=== PATIENT | female | born 1985 | race Caucasian/White ===

== ENCOUNTER 2016-12-11 15:25 | Observation (INO) | payer BC ==
[~2016-12-11] VITALS: Ht 165.1 cm; Wt 61.2 kg
[2016-12-11 15:33] VITALS: PULSE 73; RESP 20; TEMP 98.9; O2SAT 98
[2016-12-11] MEDS ORDERED: PROM25TA5 PO (15:45)
[2016-12-11] MEDS ORDERED: ZOFR4TAB PO (15:45)
[2016-12-11] MEDS ORDERED: SODIUM CHLORIDE 0.9% FLUSH 10 ML FLUSH IV FLUSH PRN ×2 (16:00→23:30)
[2016-12-11] MEDS ORDERED: SODIUM CHLOR 0.9% 1000 ML INJ 1,000 ML IV ONE (16:00)
[2016-12-11] MEDS ORDERED: ONDANSETRON HCL 4 MG/2 ML VIAL IV PUSH ONE (16:00)
[2016-12-11 16:11] VITALS: BP 97/69; PULSE 74; RESP 16; TEMP 97.9; O2SAT 98
[2016-12-11] MEDS ORDERED: DIATRIZOATE MEGLUM/DIATRIZOATE SOD 9 ML CUP ONE (16:18)
[2016-12-11 16:23] LABS: AUTOMATED NEUTROPHIL # 4.7 TH/MM3 (1.8-7.7); BASOPHIL # 0.1 TH/MM3 (0-0.2); EOSINOPHIL # 0.2 TH/MM3 (0-0.4); EOSINOPHIL % 2.4 % (0.0-4.0); HEMATOCRIT 41.6 % (35.0-46.0); HEMO FLAGS DIFF FINAL; LYMPH % 30.3 % (9.0-44.0); LYMPHOCYTE # 2.3 TH/MM3 (1.0-4.8); MEAN CELL VOLUME 84.9 FL (80.0-100.0); MEAN CORPUSCULAR HEMOGLOBIN 30.1 PG (27.0-34.0); MEAN CORPUSCULAR HGB CONC 35.4 % (32.0-36.0); MONO % 5.3 % (0.0-8.0); PLATELET COUNT 286 TH/MM3 (150-450); RED CELL DISTRIBUTION WIDTH 13.1 % (11.6-17.2); WHITE BLOOD COUNT 7.7 TH/MM3 (4.0-11.0)
[2016-12-11 16:27] LABS: BLOOD, URINE MOD (NEG); COMMENT (UR) CULT NOT INDICATED; CULTURE IF INDICATED CULT NOT INDICATED; GLUCOSE,URINE NEG (NEG); KETONE, URINE NEG (NEG); MUCUS URINE FEW /lpf (OCC); NITRITE,URINE NEG (NEG); PH, URINE 5.5 (5.0-8.5); SQUAMOUS EPITHELIAL CELL URINE <1 /hpf (0-5); URINE COLOR YELLOW (YELLW/STRAW)
--- NOTE | 2016-12-11 16:33 | PD ---
HPI Chief Complaint: Abdominal Pain Time Seen by Provider: 15:32 Travel History International Travel<30 days: No Contact w/Intl Traveler<30days: No Traveled to known affect area: No History of Present Illness HPI This is a 31-year-old female who presents with complaints of lower abdominal pain with associated nausea. The patient has had pain for 4 days. She was seen and evaluated in the emergency department in [place] and told that it could be an early appendicitis however they did not see one at the time. Her white blood cell count was reportedly normal at that time. The patient was then reevaluated 2 days ago because the pain continued. She had a ultrasound of her pelvis that showed no obvious findings however they had difficulty evaluating her right ovary. She denies any fevers, chills. She did state that she had loose stools 2 episodes. There are no urinary symptoms. The patient did have spotting that has resolved. PFSH Past Medical History Medical History: Denies Significant Hx Genitourinary: Yes (cyst) Tetanus Vaccination: < 5 Years ?: Not Past Surgical History Surgical History: No Previous Surgery Social History Alcohol Use: No Tobacco Use: No Substance Use: No Allergies-Medications (Allergen,Severity, Reaction): Coded Allergies: No Known Allergies (Unverified , 12/11/16) Reported Meds & Prescriptions Reported Meds & Active Scripts Active Reported Phenergan (Promethazine HCl) 25 Mg Tab 25 Mg PO Q6H PRN Zofran (Ondansetron HCl) 4 Mg Tab 4 Mg PO Q6HR PRN Review of Systems Except as stated in HPI: all other systems reviewed are Neg General / Constitutional: No: Fever, Chills Cardiovascular: No: Chest Pain or Discomfort, Palpitations Respiratory: No: Cough, Shortness of Breath Gastrointestinal: Positive: Nausea, Diarrhea, Abdominal Pain (loose stools 2 lower abdominal pain, worse on right.), No: Vomiting, Loss of Appetite Genitourinary: Positive: Vaginal Bleeding (spotting 3 days ago and none today) , No: Frequency, Dysuria, Discharge Musculoskeletal: No: Pain (no flank pain) Physical Exam Narrative GENERAL: Well-nourished, well-developed patient. SKIN: Focused skin assessment warm/dry. HEAD: Normocephalic/atraumatic. EYES: No scleral icterus. No injection or drainage. NECK: Supple, trachea midline. CARDIOVASCULAR: Regular rate and rhythm without murmurs, gallops, or rubs. RESPIRATORY: Breath sounds equal bilaterally. No accessory muscle use. GASTROINTESTINAL: Abdomen soft, nondistended. She did have tenderness to palpation in her lower abdominal region, worse on the right than on the left. Her was no guarding or rebound. The patient did experience significant nausea with palpation of her abdomen. GENITOURINARY: In the presence of the nurse. Normal external genitalia without lesions or erythema. Vaginal vault dark blood in the vaginal vault. Cervical os was closed without drainage. No cervical motion tenderness. Uterus nontender and nonenlarged. Right adnexa tender to palpation. No obvious large masses. Left adnexa without discomfort NEUROLOGICAL: Awake and alert. Cranial nerves II through XII intact. Motor grossly within normal limits. Five out of 5 muscle strength in all muscle groups. Normal speech. Data Data Last Documented VS Vital Signs Date Time Temp Pulse Resp B/P Pulse Ox O2 Delivery O2 Flow Rate FiO2 12/11/16 21:14 63 18 95/54 96 Room Air 12/11/16 16:11 97.9 Orders Complete Blood Count With Diff (12/11/16 15:50) Comprehensive Metabolic Panel (12/11/16 15:50) Lipase (12/11/16 15:50) Urinalysis - C+S If Indicated (12/11/16 15:50) Ct Abd/Pel W Iv Contrast(Rout) (12/11/16 15:50) Iv Access Insert/Monitor (12/11/16 15:50) Ecg Monitoring (12/11/16 15:50) Oximetry (12/11/16 15:50) Sodium Chloride 0.9% Flush (Ns Flush) (12/11/16 16:00) Ed Urine Pregnancytest Poc (12/11/16 15:50) Oral Contrast - Adult (12/11/16 15:55) Ondansetron Inj (Zofran Inj) (12/11/16 16:00) Sodium Chlor 0.9% 1000 Ml Inj (Ns 1000 M (12/11/16 16:00) Diatrizoate Liq ( Gastroview Liq) (12/11/16 16:18) Iohexol 350 Inj (Omnipaque 350 Inj) (12/11/16 17:47) Prochlorperazine Inj (Compazine Inj) (12/11/16 18:15) Wet Prep Profile (12/11/16 18:10) Gc And Chlamydia Pcr (12/11/16 18:10) Hydromorphone Pf Inj (Dilaudid Pf Inj) (12/11/16 19:15) Us Pelvis Comp W Dop Transvag (12/11/16 20:34) Consult Gynecology (12/11/16 ) Admit Order (Ed Use Only) (12/11/16 22:30) Admit Order (Ed Use Only) (12/11/16 22:32) Labs Laboratory Tests Test 12/11/16 12/11/16 16:00 18:35 White Blood Count 7.7 TH/MM3 Red Blood Count 4.90 MIL/MM3 Hemoglobin 14.7 GM/DL Hematocrit 41.6 % Mean Corpuscular Volume 84.9 FL Mean Corpuscular Hemoglobin 30.1 PG Mean Corpuscular Hemoglobin 35.4 % Concent Red Cell Distribution Width 13.1 % Platelet Count 286 TH/MM3 Mean Platelet Volume 7.9 FL Neutrophils (%) (Auto) 61.0 % Lymphocytes (%) (Auto) 30.3 % Monocytes (%) (Auto) 5.3 % Eosinophils (%) (Auto) 2.4 % Basophils (%) (Auto) 1.0 % Neutrophils # (Auto) 4.7 TH/MM3 Lymphocytes # (Auto) 2.3 TH/MM3 Monocytes # (Auto) 0.4 TH/MM3 Eosinophils # (Auto) 0.2 TH/MM3 Basophils # (Auto) 0.1 TH/MM3 CBC Comment DIFF FINAL Differential Comment Urine Color YELLOW Urine Turbidity CLEAR Urine pH 5.5 Urine Specific [place] 1.014 Urine Protein NEG mg/dL Urine Glucose (UA) NEG mg/dL Urine Ketones NEG mg/dL Urine Occult Blood MOD Urine Nitrite NEG Urine Bilirubin NEG Urine Urobilinogen LESS THAN 2.0 MG/DL Urine Leukocyte Esterase TRACE Urine RBC 1 /hpf Urine WBC 5 /hpf Urine Squamous Epithelial <1 /hpf Cells Urine Mucus FEW /lpf Microscopic Urinalysis Comment CULT NOT INDICATED Sodium Level 141 MEQ/L Potassium Level 3.8 MEQ/L Chloride Level 105 MEQ/L Carbon Dioxide Level 26.4 MEQ/L Anion Gap 10 MEQ/L Blood Urea Nitrogen 12 MG/DL Creatinine 0.88 MG/DL Estimat Glomerular Filtration 75 ML/MIN Rate Random Glucose 77 MG/DL Calcium Level 8.9 MG/DL Total Bilirubin 0.6 MG/DL Aspartate Amino Transf 10 U/L (AST/SGOT) Alanine Aminotransferase 14 U/L (ALT/SGPT) Alkaline Phosphatase 85 U/L Total Protein 7.5 GM/DL Albumin 4.1 GM/DL Lipase 130 U/L Human Chorionic Gonadotropin, LESS THAN 1 Quant MIU/ML Clue Cells (Wet Prep) NONE SEEN Vaginal Trichomonas (Wet Prep) NONE SEEN Vaginal Yeast (Wet Prep) NONE SEEN Chlamydia trachomatis DNA NOT DETECTED (PCR) Neisseria gonorrhoeae DNA NOT DETECTED (PCR) MDM Medical Decision Making Medical Screen Exam Complete: Yes Emergency Medical Condition: Yes Differential Diagnosis Appendicitis versus ruptured ovarian cyst versus gastroenteritis versus diverticulitis Narrative Course This is a 31-year-old female who is had several day history of right lower quadrant pain and nausea. The patient has been seen and evaluated twice at [facility]. The patient had a CT scan that was not showing an obvious appendicitis. She also had an ultrasound however they were not able to visualize her right ovary. She has tenderness in her right quadrant. CT scan performed here shows what appears to be hydrosalpinx of the right fallopian tube. The patient has no evidence of pelvic infection on exam. She is tender in the right adnexa near her ovary. Pelvic ultrasound is ordered. The patient was transferred to Dr. Rodriguez and Pardeep Lr PA-C. Pending ultrasound results, disposition will be made. I anticipate she may need admission versus observation with a HAIR SALON MANAGER consult. Diagnosis Primary Impression: Right lower quadrant abdominal tenderness with rebound tenderness Additional Impressions: Hydrosalpinx intractable nausea Scripts Pantoprazole 40 Mg Tab40 Mg PO DAILY #30 TAB Ref 0 Prov:Kendall Menon DO 12/13/16 Ondansetron (Zofran)4 Mg Tab4 Mg PO Q8HR PRN (NAUSEA OR VOMITING) #20 TAB Ref 2 Prov:Rosa Mejias 12/13/16 Mark Mcgee MD Dec 11, 2016 16:33
[2016-12-11 16:47] LABS: ANION GAP 10 MEQ/L (5-15); AST (GOT) 10 U/L (15-37); BICARBONATE 26.4 MEQ/L (21.0-32.0); BLOOD UREA NITROGEN 12 MG/DL (7-18); CHLORIDE 105 MEQ/L (98-107); GLOMERULAR FILTRATION RATE 75 ML/MIN (>89); POTASSIUM 3.8 MEQ/L (3.5-5.1); SODIUM (NA) 141 MEQ/L (136-145)
[2016-12-11 16:50] LABS: ALKALINE PHOSPHATASE 85 U/L (45-117); ALT (GPT) 14 U/L (10-53); TOTAL BILIRUBIN ADULT 0.6 MG/DL (0.2-1.0)
[2016-12-11] MEDS ORDERED: IOHEXOL 350 MG/ML 10 ML VIAL (for RAD DIAG) IV ONE (17:47)
[2016-12-11 18:00] VITALS: BP 102/65; PULSE 82; RESP 16; O2SAT 99
--- NOTE | 2016-12-11 18:01 | RADRPT ---
EXAM DATE/TIME: 12/11/2016 17:31 [facility] COMPARISON: No previous studies available for comparison. INDICATIONS : Right lower quadrant pain, nausea and vomiting. IV CONTRAST: 90 cc Omnipaque 350 (iohexol) IV ORAL CONTRAST: No oral contrast ingested. RADIATION DOSE: 5.31 CTDIvol (mGy) MEDICAL HISTORY : None SURGICAL HISTORY : None. ENCOUNTER: Initial ACUITY: 3 days PAIN SCALE: 6/10 LOCATION: Right lower quadrant TECHNIQUE: Volumetric scanning of the abdomen and pelvis was performed. Using automated exposure control and ad justment of the mA and/or kV according to patient size, radiation dose was kept as low as reasonably achievable to obtain optimal diagnostic quality images. FINDINGS: The appendix appears normal without inflammatory change. There is a questionable tubular structure ex tending off the right side of the uterus that could represent a hydrosalpinx. Intrauterine device is present. No left-sided adnexal mass except for probable small follicular cyst. Lung bases are clear. Mild fatty. Spleen, adrenals, kidneys are and pancreas unremarkable. No bowel o bstruction. CONCLUSION: 1. Possible right-sided hydrosalpinx. Recommend correlation with pelvic ultrasound. Appendix unremark able. Intrauterine device present. Lei Morales MD on December 11, 2016 at 17:54 Board Certified Radiologist. This report was verified electronically.
[2016-12-11] MEDS ORDERED: PROCHLORPERAZINE INJ 10 MG/2 ML VIAL IV PUSH ONE (18:15)
[2016-12-11] MEDS ORDERED: HYDROmorphone HCL PF 1 MG/ML VIAL IV PUSH ONE (19:15)
[2016-12-11 21:14] VITALS: BP 95/54; PULSE 63; RESP 18; O2SAT 96
--- NOTE | 2016-12-11 22:15 | PD ---
Physical Exam Date Seen by Provider: Dec 11, 2016 Time Seen by Provider: 21:00 Narrative 31-year-old female with 4 day history of right lower quadrant pain seen by Dr. Mcgee and felt a pop and then transferred to echo pod for CT scan and ultrasound. Please see his note for past medical history. Data Data Last Documented VS Vital Signs Date Time Temp Pulse Resp B/P Pulse Ox O2 Delivery O2 Flow Rate FiO2 12/11/16 21:14 63 18 95/54 96 Room Air 12/11/16 16:11 97.9 Orders Complete Blood Count With Diff (12/11/16 15:50) Comprehensive Metabolic Panel (12/11/16 15:50) Lipase (12/11/16 15:50) Urinalysis - C+S If Indicated (12/11/16 15:50) Ct Abd/Pel W Iv Contrast(Rout) (12/11/16 15:50) Iv Access Insert/Monitor (12/11/16 15:50) Ecg Monitoring (12/11/16 15:50) Oximetry (12/11/16 15:50) Sodium Chloride 0.9% Flush (Ns Flush) (12/11/16 16:00) Ed Urine Pregnancytest Poc (12/11/16 15:50) Oral Contrast - Adult (12/11/16 15:55) Ondansetron Inj (Zofran Inj) (12/11/16 16:00) Sodium Chlor 0.9% 1000 Ml Inj (Ns 1000 M (12/11/16 16:00) Diatrizoate Liq ( Gastroview Liq) (12/11/16 16:18) Iohexol 350 Inj (Omnipaque 350 Inj) (12/11/16 17:47) Prochlorperazine Inj (Compazine Inj) (12/11/16 18:15) Wet Prep Profile (12/11/16 18:10) Gc And Chlamydia Pcr (12/11/16 18:10) Hydromorphone Pf Inj (Dilaudid Pf Inj) (12/11/16 19:15) Us Pelvis Comp W Dop Transvag (12/11/16 20:34) Consult Gynecology (12/11/16 ) Labs Laboratory Tests Test 12/11/16 12/11/16 16:00 18:35 White Blood Count 7.7 TH/MM3 Red Blood Count 4.90 MIL/MM3 Hemoglobin 14.7 GM/DL Hematocrit 41.6 % Mean Corpuscular Volume 84.9 FL Mean Corpuscular Hemoglobin 30.1 PG Mean Corpuscular Hemoglobin 35.4 % Concent Red Cell Distribution Width 13.1 % Platelet Count 286 TH/MM3 Mean Platelet Volume 7.9 FL Neutrophils (%) (Auto) 61.0 % Lymphocytes (%) (Auto) 30.3 % Monocytes (%) (Auto) 5.3 % Eosinophils (%) (Auto) 2.4 % Basophils (%) (Auto) 1.0 % Neutrophils # (Auto) 4.7 TH/MM3 Lymphocytes # (Auto) 2.3 TH/MM3 Monocytes # (Auto) 0.4 TH/MM3 Eosinophils # (Auto) 0.2 TH/MM3 Basophils # (Auto) 0.1 TH/MM3 CBC Comment DIFF FINAL Differential Comment Urine Color YELLOW Urine Turbidity CLEAR Urine pH 5.5 Urine Specific [place] 1.014 Urine Protein NEG mg/dL Urine Glucose (UA) NEG mg/dL Urine Ketones NEG mg/dL Urine Occult Blood MOD Urine Nitrite NEG Urine Bilirubin NEG Urine Urobilinogen LESS THAN 2.0 MG/DL Urine Leukocyte Esterase TRACE Urine RBC 1 /hpf Urine WBC 5 /hpf Urine Squamous Epithelial <1 /hpf Cells Urine Mucus FEW /lpf Microscopic Urinalysis Comment CULT NOT INDICATED Sodium Level 141 MEQ/L Potassium Level 3.8 MEQ/L Chloride Level 105 MEQ/L Carbon Dioxide Level 26.4 MEQ/L Anion Gap 10 MEQ/L Blood Urea Nitrogen 12 MG/DL Creatinine 0.88 MG/DL Estimat Glomerular Filtration 75 ML/MIN Rate Random Glucose 77 MG/DL Calcium Level 8.9 MG/DL Total Bilirubin 0.6 MG/DL Aspartate Amino Transf 10 U/L (AST/SGOT) Alanine Aminotransferase 14 U/L (ALT/SGPT) Alkaline Phosphatase 85 U/L Total Protein 7.5 GM/DL Albumin 4.1 GM/DL Lipase 130 U/L Clue Cells (Wet Prep) NONE SEEN Vaginal Trichomonas (Wet Prep) NONE SEEN Vaginal Yeast (Wet Prep) NONE SEEN MDM Medical Record Reviewed: Yes Supervised Visit with JAZMIN: Yes Differential Diagnosis Appendicitis. Hydrosalpinx. Ovarian torsion. Narrative Course CT scan showed possible hydrosalpinx on the right. Ultrasound was then ordered and performed with Doppler. Ultrasound showed that there was blood flow in the right ovary, but there was inflammation. Patient is felt to need admission for pain control and gynecological consult. 2200 hrs. call was placed to the hospitalist for admission. Patient is discussed with Dr. Daugherty by Dr. Rodriguez, as well as with Dr. Robison , who agreed to admit the patient for observation. Gynecological consult was placed to Dr. Daugherty. Diagnosis Primary Impression: Hydrosalpinx Additional Impression: Right lower quadrant abdominal tenderness with rebound tenderness Admitting Information Admitting Physician Requests: Admit Condition: Stable Pardeep Lr Dec 11, 2016 22:15
--- NOTE | 2016-12-11 22:29 | RADRPT ---
EXAM DATE/TIME: 12/11/2016 21:19 [facility] COMPARISON: No previous studies available for comparison. INDICATIONS : Pelvic pain. MEDICAL HISTORY : . Ovarian cyst. Nausea. Right lower quadrant pain. SURGICAL HISTORY : None. ENCOUNTER: Initial ACUITY: 4-6 days PAIN SCORE: 7/10 LOCATION: Bilateral pelvis MEASUREMENTS: UTERUS: 5.9 x 4.4 x 3.5 cm ENDOMETRIAL STRIPE: 5 mm RIGHT OVARY: 2.9 x 1.8 x 1.7 cm LEFT OVARY: 3.3 x 2.1 x 2.2 cm FINDINGS: Intrauterine device present within the uterus. Right ovary unremarkable. Small cyst left ovary. No fr ee fluid. There is some enlargement of what appears to be the right fallopian tube with edematous dylan nge no hydrosalpinx is noted. CONCLUSION: 1. Abnormality in the right adnexal region, probably an enlarged and edematous fallopian tube. Intrau terine device present. Positive ovarian blood flow noted bilaterally with small left sided ovarian fo llicular cysts. Lei Morales MD on December 11, 2016 at 22:25 Board Certified Radiologist. This report was verified electronically.
--- NOTE | 2016-12-11 23:16 | HHI.HP ---
[facility] Unknown Admission Diagnosis Right hydrosalpinx Diagnoses: Chief Complaint: RLQ abd pain assoicated with dry heaves Travel History International Travel<30 Days: No Contact w/Intl Traveler <30 Da: No Traveled to Known Affected Are: No History of Present Illness This is a 31-year-old female who denies prior medical history who presents with complaints of lower abdominal pain with associated nausea. The patient has had pain for 4 days. Patient reports her symptoms initially began 4 days ago she had right lower quadrant pain with associated nausea and dry heaving. The nausea and dry heaves were exacerbated by trying to ambulate. Patient also reports she had vaginal discharge with light bleeding approximately 1 tampon for 12 hours. The light bleeding/spotting resolved after 2 days. She was seen and evaluated in the emergency department in [place] and told that it could be an early appendicitis however they did not see one at the time. Her white blood cell count was reportedly normal at that time. The patient was then reevaluated 2 days ago because the pain continued. She had a ultrasound of her pelvis that showed no obvious findings however they had difficulty evaluating her right ovary. Patient reports that over Monday night into Monday morning the nausea and right lower quadrant pain became more severe. Therefore patient presented to the emergency department today for further evaluation. At this time patient reports she is comfortable after IV Dilaudid and IV Compazine Patient reports her last menstrual period was November 15, 2016 which lasted for 7 days. Patient 2 para 2, currently has IUD device in place. Review of Systems Except as stated in HPI: all other systems reviewed are Neg Past Family Social History Past Medical History 3 para 2 Denies other medical history Past Surgical History Denies prior surgical history Reported Medications Phenergan (Promethazine HCl) 25 Mg Tab 25 Mg PO Q6H PRN Zofran (Ondansetron HCl) 4 Mg Tab 4 Mg PO Q6HR PRN Allergies: Coded Allergies: No Known Allergies (Unverified , 12/11/16) Active Ordered Medications Current Medications Medications (Trade) Dose Ordered Sig/Ave Route Start Time Stop Time Status Last Admin (NS 1000 ml Inj) 1,000 ml @ 75 mls/hr [id number] IV 12/11/16 23:22 (NS Flush) 2 ml UNSCH PRN IV FLUSH 12/11/16 23:30 (NS Flush) 2 ml BID IV FLUSH 12/12/16 09:00 (Tylenol) 650 mg Q4H PRN PO 12/11/16 23:30 (Narcan Inj) 0.4 mg UNSCH PRN IV 12/11/16 23:30 (Dilaudid Pf Inj) 0.5 mg Q4H PRN IV PUSH 12/11/16 23:30 (Compazine Inj) 5 mg Q6H PRN IM 12/11/16 23:30 Family History father HTN Mother RA, hypothyroid remote history of ovarian cancer- aunt Social History ETOH socially denies tobacco use or illicit drug use Physical Exam Vital Signs Vital Signs Date Time Temp Pulse Resp B/P Pulse Ox O2 Delivery O2 Flow Rate FiO2 12/11/16 21:14 63 18 95/54 96 Room Air 12/11/16 19:27 16 12/11/16 18:00 82 16 102/65 99 Room Air 12/11/16 16:11 97.9 74 16 97/69 98 Room Air 12/11/16 15:33 98.9 73 20 98 Physical Exam GENERAL: This is a well-nourished, well-developed patient, in no apparent distress. SKIN: No rashes, ecchymoses or lesions. Cool and dry. HEAD: Atraumatic. Normocephalic. No temporal or scalp tenderness. EYES: Extraocular motions intact. No scleral icterus. No injection or drainage. CARDIOVASCULAR: Regular rate and rhythm without murmurs, gallops, or rubs. RESPIRATORY: Clear to auscultation. Breath sounds equal bilaterally. No wheezes , rales, or rhonchi. GASTROINTESTINAL: Abdomen soft, tender RLQ- worse with pressure no rebound tenderness elicited, nondistended. MUSCULOSKELETAL: Extremities without clubbing, cyanosis, or edema. No joint tenderness, effusion, or edema noted. No calf tenderness. Negative Homans sign bilaterally. NEUROLOGICAL: Awake and alert. Cranial nerves II through XII intact. Motor and sensory grossly within normal limits. Five out of 5 muscle strength in all muscle groups. Normal speech. Laboratory Laboratory Tests Test 12/11/16 12/11/16 16:00 18:35 White Blood Count 7.7 Red Blood Count 4.90 Hemoglobin 14.7 Hematocrit 41.6 Mean Corpuscular Volume 84.9 Mean Corpuscular Hemoglobin 30.1 Mean Corpuscular Hemoglobin 35.4 Concent Red Cell Distribution Width 13.1 Platelet Count 286 Mean Platelet Volume 7.9 Neutrophils (%) (Auto) 61.0 Lymphocytes (%) (Auto) 30.3 Monocytes (%) (Auto) 5.3 Eosinophils (%) (Auto) 2.4 Basophils (%) (Auto) 1.0 Neutrophils # (Auto) 4.7 Lymphocytes # (Auto) 2.3 Monocytes # (Auto) 0.4 Eosinophils # (Auto) 0.2 Basophils # (Auto) 0.1 CBC Comment DIFF FINAL Differential Comment Urine Color YELLOW Urine Turbidity CLEAR Urine pH 5.5 Urine Specific [place] 1.014 Urine Protein NEG Urine Glucose (UA) NEG Urine Ketones NEG Urine Occult Blood MOD Urine Nitrite NEG Urine Bilirubin NEG Urine Urobilinogen LESS THAN 2.0 Urine Leukocyte Esterase TRACE Urine RBC 1 Urine WBC 5 Urine Squamous Epithelial <1 Cells Urine Mucus FEW Microscopic Urinalysis Comment CULT NOT INDICATED Sodium Level 141 Potassium Level 3.8 Chloride Level 105 Carbon Dioxide Level 26.4 Anion Gap 10 Blood Urea Nitrogen 12 Creatinine 0.88 Estimat Glomerular Filtration 75 Rate Random Glucose 77 Calcium Level 8.9 Total Bilirubin 0.6 Aspartate Amino Transf 10 (AST/SGOT) Alanine Aminotransferase 14 (ALT/SGPT) Alkaline Phosphatase 85 Total Protein 7.5 Albumin 4.1 Lipase 130 Clue Cells (Wet Prep) NONE SEEN Vaginal Trichomonas (Wet Prep) NONE SEEN Vaginal Yeast (Wet Prep) NONE SEEN Result Diagram: 12/11/16 1600 12/11/16 1600 Imaging Last Impressions Abdomen/Pelvis/Transvag US 12/11/162033 Signed Impressions: Service Date/Time: Sunday, December 11, 2016 21:19 - CONCLUSION: 1. Abnormality in the right adnexal region, probably an enlarged and edematous fallopian tube. Intrauterine device present. Positive ovarian blood flow noted bilaterally with small left sided ovarian follicular cysts. Lei Morales MD Abdomen/Pelvis CT 12/11/16 1550 Signed Impressions: Service Date/Time: Sunday, December 11, 2016 17:31 - CONCLUSION: 1. Possible right-sided hydrosalpinx. Recommend correlation with pelvic ultrasound. Appendix unremarkable. Intrauterine device present. Lei Morales MD Assessment and Plan Assessment and Plan This is a 31-year-old female who denies prior medical history who presents with complaints of lower abdominal pain with associated nausea. The patient has had pain for 4 days. Patient reports her symptoms initially began 4 days ago she had right lower quadrant pain with associated nausea and dry heaving. She is having persistent abdominal pain, intractable nausea/dry heaving requiring IV medications. RLQ abdominal pain Transvaginal pelvic ultrasound reveals: Abnormality in the right adnexal region, probably an enlarged and edematous fallopian tube. Intrauterine device present. Positive ovarian blood flow noted bilaterally with small left sided ovarian follicular cysts. CT abdomen and pelvis reveals: Possible right-sided hydrosalpinx. Recommend correlation with pelvic ultrasound. Appendix unremarkable. Intrauterine device present. Consult PEST MANAGEMENT SUPERVISOR- ER provider spoke with Dr. Dat Phillips for pain Nothing by mouth after midnight nausea continue compazine IV fluid for hydration DVT prophylaxis with SCDs Discussed with ER provider, and nursing, patient and brother at bedside Written by Lilia Ybarra, acting as scribe for Dr. Robison on 12/11/16 at 2315. This note was transcribed by scribe [Lilia Ybarra]. I, Dr. Fermin Robison personally performed the history, physical exam, and medical decision making; and confirmed the accuracy of the information in the transcribed note. Authenticated by Dr. Fermin Robison on 12/11/16 at 2315. Lilia Ybarra Dec 11, 2016 23:16 Fermin Robison MD Dec 12, 2016 01:55
[2016-12-11] MEDS ORDERED: SODIUM CHLOR 0.9% 1000 ML INJ 1,000 ML IV SCH (23:22)
[2016-12-11 23:29] LABS: CHLAMYDIA PCR NOT DETECTED (NOT DETECT); NEISSERIA PCR NOT DETECTED (NOT DETECT)
[2016-12-11] MEDS ORDERED: HYDROmorphone HCL PF 1 MG/ML VIAL IV PUSH PRN (23:30)
[2016-12-11] MEDS ORDERED: ACETAMINOPHEN 325 MG TAB PO PRN (23:30)
[2016-12-11] MEDS ORDERED: NALOXONE HCL 0.4 MG/ML AMP IV PRN (23:30)
[2016-12-11 23:56] LABS: BETA HCG QUANT LESS THAN 1 MIU/ML (0-5)
[2016-12-12] VITALS (9 sets, daily range): BP systolic 97–107; BP diastolic 54–64; PULSE 69–96; RESP 16–18; TEMP 97–98.6; O2SAT 96–98
[2016-12-12 06:41] LABS: AUTOMATED NEUTROPHIL # 3.6 TH/MM3 (1.8-7.7); BASOPHIL # 0.1 TH/MM3 (0-0.2); BASOPHIL % 0.9 % (0.0-2.0); EOSINOPHIL # 0.2 TH/MM3 (0-0.4); HEMATOCRIT 37.9 % (35.0-46.0); HEMO FLAGS DIFF FINAL; LYMPH % 30.8 % (9.0-44.0); LYMPHOCYTE # 1.8 TH/MM3 (1.0-4.8); MEAN CELL VOLUME 86.6 FL (80.0-100.0); MEAN CORPUSCULAR HEMOGLOBIN 28.7 PG (27.0-34.0); MEAN CORPUSCULAR HGB CONC 33.1 % (32.0-36.0); MONO % 5.6 % (0.0-8.0); NEUT % 59.7 % (16.0-70.0); PLATELET COUNT 229 TH/MM3 (150-450); RED BLOOD COUNT 4.37 MIL/MM3 (4.00-5.30); RED CELL DISTRIBUTION WIDTH 12.8 % (11.6-17.2)
[2016-12-12 06:59] LABS: BICARBONATE 27.3 MEQ/L (21.0-32.0); POTASSIUM 3.8 MEQ/L (3.5-5.1)
[2016-12-12] MEDS: PROCHLORPERAZINE INJ 10 MG/2 ML VIAL IM PRN ×2 (08:13→21:16)
[2016-12-12] MEDS: SODIUM CHLORIDE 0.9% FLUSH 10 ML FLUSH IV FLUSH SCH ×2 (09:00→19:50)
--- NOTE | 2016-12-12 10:19 | HHI.PR ---
Subjective Remarks The patient was resting comfortably in bed. Her brother was at the bedside. The patient said that her pain was controlled. She didn't endorse a little diarrhea. She had a little spotting earlier that has since resolved. She denies any fevers. Objective Vitals Vital Signs Date Time Temp Pulse Resp B/P Pulse Ox O2 Delivery O2 Flow Rate FiO2 12/12/16 08:00 98.6 73 18 99/54 97 12/12/16 07:59 98 21 12/12/16 04:00 97.0 69 18 103/54 98 12/12/16 00:55 97.0 96 17 97/55 96 12/12/16 00:29 69 18 100/56 97 12/12/16 00:09 96 12/11/16 21:14 63 18 95/54 96 Room Air 12/11/16 19:27 16 12/11/16 18:00 82 16 102/65 99 Room Air 12/11/16 16:11 97.9 74 16 97/69 98 Room Air 12/11/16 15:33 98.9 73 20 98 I/O 12/11/16 12/11/16 12/11/16 12/12/16 12/12/16 12/12/16 07:00 15:00 23:00 07:00 15:00 23:00 Intake Total 0 ml Balance 0 ml Intake Oral 0 ml Result Diagram: 12/12/16 0601 12/12/16 0601 Imaging Last Impressions Abdomen/Pelvis/Transvag US 12/11/162033 Signed Impressions: Service Date/Time: Sunday, December 11, 2016 21:19 - CONCLUSION: 1. Abnormality in the right adnexal region, probably an enlarged and edematous fallopian tube. Intrauterine device present. Positive ovarian blood flow noted bilaterally with small left sided ovarian follicular cysts. Lei Morales MD Abdomen/Pelvis CT 12/11/16 1550 Signed Impressions: Service Date/Time: Sunday, December 11, 2016 17:31 - CONCLUSION: 1. Possible right-sided hydrosalpinx. Recommend correlation with pelvic ultrasound. Appendix unremarkable. Intrauterine device present. Lei Morales MD Objective Remarks GENERAL: This is a well-nourished, well-developed patient, in no apparent distress. SKIN: No rashes, ecchymoses or lesions. Cool and dry. HEAD: Atraumatic. Normocephalic. No temporal or scalp tenderness. EYES: Extraocular motions intact. No scleral icterus. No injection or drainage. CARDIOVASCULAR: Regular rate and rhythm without murmurs, gallops, or rubs. RESPIRATORY: Clear to auscultation. Breath sounds equal bilaterally. No wheezes , rales, or rhonchi. GASTROINTESTINAL: Abdomen soft, diffusely tender, nondistended. MUSCULOSKELETAL: Extremities without clubbing, cyanosis, or edema. No joint tenderness, effusion, or edema noted. NEUROLOGICAL: Awake and alert. Cranial nerves II through XII intact. Motor and sensory grossly within normal limits. Five out of 5 muscle strength in all muscle groups. Normal speech. PSYCH: Mood and affect appropriate. Medications and IVs Current Medications Medications (Trade) Dose Ordered Sig/Ave Route Start Time Stop Time Status Last Admin (NS 1000 ml Inj) 1,000 ml @ 75 mls/hr [id number] IV 12/11/16 23:22 12/12/16 00:16 (NS Flush) 2 ml UNSCH PRN IV FLUSH 12/11/16 23:30 (NS Flush) 2 ml BID IV FLUSH 12/12/16 09:00 (Tylenol) 650 mg Q4H PRN PO 12/11/16 23:30 (Narcan Inj) 0.4 mg UNSCH PRN IV 12/11/16 23:30 (Dilaudid Pf Inj) 0.5 mg Q4H PRN IV PUSH 12/11/16 23:30 (Compazine Inj) 5 mg Q6H PRN IM 12/11/16 23:30 12/12/16 08:13 A/P Assessment and Plan RLQ abdominal pain Transvaginal pelvic ultrasound reveals: Abnormality in the right adnexal region , probably an enlarged and edematous fallopian tube; Intrauterine device present ; Positive ovarian blood flow noted bilaterally with small left sided ovarian follicular cysts. CT abdomen and pelvis reveals: Possible right-sided hydrosalpinx; Appendix unremarkable. - Consult [facility]- ER provider spoke with Dr. Daugherty. - Pain control with a bowel regimen. - Nothing by mouth with IVFs. - antiemetics as needed. Hypotension Likely the pt's baseline blood pressure. - monitor. - fluids. PPx: SCDs. Discharge Planning Awaiting OBGYN robbie. Kendall Menon DO Dec 12, 2016 10:19
[2016-12-12] MEDS: DEXT 5%-NACL 0.9% 1000 ML INJ 1,000 ML IV SCH ×2 (11:00→13:10)
--- NOTE | 2016-12-12 12:36 | PD.CONS ---
HPI Chief Complaint Nausea and RLQ pain x 4 days Has 5x1 cm tube on RT Appendix appears normal WBC nl Still with nausea but pain is better; no pain meds since last night, but has needed antiemetics with Mirena x 17 months distant hx of IBS no surgical hx Date Seen: Dec 12, 2016 Travel History International Travel<30 Days: No Contact w/Intl Traveler<30Days: No Known Affected Area: No Allergies-Medications (Allergen,Severity, Reaction): Coded Allergies: No Known Allergies (Unverified , 12/11/16) Home Meds Reported Medications Promethazine (Phenergan)25 Mg Tab25 Mg PO Q6H PRN (Nausea/Vomiting) Ref 0 12/11/16 Ondansetron (Zofran)4 Mg Tab4 Mg PO Q6HR PRN (NAUSEA OR VOMITING) Ref 0 12/11/16 Review of Systems Respiratory: No: Cough, Short of Breath Gastrointestinal: Nausea, Vomiting, Diarrhea, Abdominal Pain, Loss of Appetite , No: Constipation Genitourinary: No: Urgency, Pelvic Pain, Discharge, Menorrhagia, Vaginal Bleeding Physical Exam Vital Signs Date Time Temp Pulse Resp B/P Pulse Ox O2 Delivery O2 Flow Rate FiO2 12/12/16 08:00 98.6 73 18 99/54 97 12/12/16 07:59 98 21 12/12/16 04:00 97.0 69 18 103/54 98 12/12/16 00:55 97.0 96 17 97/55 96 12/12/16 00:29 69 18 100/56 97 12/12/16 00:09 96 12/11/16 21:14 63 18 95/54 96 Room Air 12/11/16 19:27 16 12/11/16 18:00 82 16 102/65 99 Room Air 12/11/16 16:11 97.9 74 16 97/69 98 Room Air 12/11/16 15:33 98.9 73 20 98 Narrative GENERAL: Well-nourished, well-developed patient. SKIN: Warm and dry. HEAD: Normocephalic and atraumatic. EYES: No scleral icterus. No injection or drainage. ABDOMEN/GI: Abdomen soft, minimal tenderness, no rebound, no guarding Data Data Orders Complete Blood Count With Diff (12/11/16 15:50) Comprehensive Metabolic Panel (12/11/16 15:50) Lipase (12/11/16 15:50) Urinalysis - C+S If Indicated (12/11/16 15:50) Ct Abd/Pel W Iv Contrast(Rout) (12/11/16 15:50) Iv Access Insert/Monitor (12/11/16 15:50) Ecg Monitoring (12/11/16 15:50) Oximetry (12/11/16 15:50) Sodium Chloride 0.9% Flush (Ns Flush) (12/11/16 16:00) Ed Urine Pregnancytest Poc (12/11/16 15:50) Oral Contrast - Adult (12/11/16 15:55) Ondansetron Inj (Zofran Inj) (12/11/16 16:00) Sodium Chlor 0.9% 1000 Ml Inj (Ns 1000 M (12/11/16 16:00) Diatrizoate Liq ( Gastroview Liq) (12/11/16 16:18) Iohexol 350 Inj (Omnipaque 350 Inj) (12/11/16 17:47) Prochlorperazine Inj (Compazine Inj) (12/11/16 18:15) Wet Prep Profile (12/11/16 18:10) Gc And Chlamydia Pcr (12/11/16 18:10) Hydromorphone Pf Inj (Dilaudid Pf Inj) (12/11/16 19:15) Us Pelvis Comp W Dop Transvag (12/11/16 20:34) Consult Gynecology (12/11/16 ) Admit Order (Ed Use Only) (12/11/16 22:30) Admit Order (Ed Use Only) (12/11/16 22:32) (Hub Use Only)Inp Phy Cons/Ref (12/11/16 ) Place In Observation (12/11/16 ) Vital Signs (Adult) Q4H (12/11/16 23:22) Activity Bed Rest With Brp (12/11/16 23:22) Diet Clear Liquid (12/12/16 Breakfast) Sodium Chlor 0.9% 1000 Ml Inj (Ns 1000 M (12/11/16 23:22) Sodium Chloride 0.9% Flush (Ns Flush) (12/11/16 23:30) Sodium Chloride 0.9% Flush (Ns Flush) (12/12/16 09:00) Acetaminophen (Tylenol) (12/11/16 23:30) Basic Metabolic Panel (Bmp) (12/12/16 06:00) Complete Blood Count With Diff (12/12/16 06:00) Resp Oxygen Aaorn C Titrat 1-4 L (12/11/16 ) Scd Bilateral/Knee High CHAD.BID (12/11/16 23:22) Naloxone Inj (Narcan Inj) (12/11/16 23:30) Hydromorphone Pf Inj (Dilaudid Pf Inj) (12/11/16 23:30) Prochlorperazine Inj (Compazine Inj) (12/11/16 23:30) Npo After Midnight W/ Po Meds (12/12/16 Breakfast) Beta Hcg (Quant/Titer) (12/11/16 23:32) Equip, Iv Pump Use Of (12/12/16 00:33) Physician Name Changes (12/12/16 ) Docusate Sodium (Colace) (12/12/16 21:00) Dext 5%-Nacl 0.9% 1000 Ml Inj (D5w-Ns 10 (12/12/16 11:00) Labs Laboratory Tests Test 12/11/16 12/11/16 12/12/16 16:00 18:35 06:01 White Blood Count 7.7 6.0 Red Blood Count 4.90 4.37 Hemoglobin 14.7 12.6 Hematocrit 41.6 37.9 Mean Corpuscular Volume 84.9 86.6 Mean Corpuscular Hemoglobin 30.1 28.7 Mean Corpuscular Hemoglobin 35.4 33.1 Concent Red Cell Distribution Width 13.1 12.8 Platelet Count 286 229 Mean Platelet Volume 7.9 7.9 Neutrophils (%) (Auto) 61.0 59.7 Lymphocytes (%) (Auto) 30.3 30.8 Monocytes (%) (Auto) 5.3 5.6 Eosinophils (%) (Auto) 2.4 3.0 Basophils (%) (Auto) 1.0 0.9 Neutrophils # (Auto) 4.7 3.6 Lymphocytes # (Auto) 2.3 1.8 Monocytes # (Auto) 0.4 0.3 Eosinophils # (Auto) 0.2 0.2 Basophils # (Auto) 0.1 0.1 CBC Comment DIFF FINAL DIFF FINAL Differential Comment Urine Color YELLOW Urine Turbidity CLEAR Urine pH 5.5 Urine Specific [place] 1.014 Urine Protein NEG Urine Glucose (UA) NEG Urine Ketones NEG Urine Occult Blood MOD Urine Nitrite NEG Urine Bilirubin NEG Urine Urobilinogen LESS THAN 2.0 Urine Leukocyte Esterase TRACE Urine RBC 1 Urine WBC 5 Urine Squamous Epithelial <1 Cells Urine Mucus FEW Microscopic Urinalysis Comment CULT NOT INDICATED Sodium Level 141 141 Potassium Level 3.8 3.8 Chloride Level 105 107 Carbon Dioxide Level 26.4 27.3 Anion Gap 10 7 Blood Urea Nitrogen 12 10 Creatinine 0.88 0.80 Estimat Glomerular Filtration 75 84 Rate Random Glucose 77 74 Calcium Level 8.9 8.1 Total Bilirubin 0.6 Aspartate Amino Transf 10 (AST/SGOT) Alanine Aminotransferase 14 (ALT/SGPT) Alkaline Phosphatase 85 Total Protein 7.5 Albumin 4.1 Lipase 130 Human Chorionic Gonadotropin, LESS THAN 1 Quant Clue Cells (Wet Prep) NONE SEEN Vaginal Trichomonas (Wet Prep) NONE SEEN Vaginal Yeast (Wet Prep) NONE SEEN Chlamydia trachomatis DNA NOT DETECTED (PCR) Neisseria gonorrhoeae DNA NOT DETECTED (PCR) MDM Medical Record Reviewed: Yes Narrative Course / MDM Pt with GI sx and incidental finding of 5x1 cm hydrosalpinx She still has nausea and i do not believe that her sx are related to the tube on the RT. It is possible she had an ovarian cyst that ruptured but that is rarely the cause of N/V I see no evidence of PID with nl wbc, no vag dc, no significant risk factors. I would recommend a general surgery consult with the continued nausea and RLQ tenderness. Most likely a viral syndrome with GI manifestations Discussed issues with patient and her brother and they agree with plan to have general surgery see patient. Admitting diagnosis: Right hydrosalpinx Condition: Stable Ismael Daugherty MD Dec 12, 2016 12:36
--- NOTE | 2016-12-12 13:37 | MB ---
cc: GISEL FERNANDEZ MD DATE OF CONSULTATION: 12/12/2016 CHIEF COMPLAINT Nausea, vomiting, right lower quadrant pain with hydrosalpinx. HISTORY OF PRESENT ILLNESS The patient is a 31-year-old white female, 2, para [address]. She is with nausea and vomiting over the last several days. She was seen in multiple hospitals without a definitive diagnosis. Her brother is a leakage tester here at [employer] and she was brought here for further evaluation. In the ER she was found to have some right lower quadrant tenderness, normal vital signs, normal laboratory studies. She did have imaging study that showed a 1 x 5 cm tubular structure on the right suggestive of hydrosalpinx. The patient has no history of PID, endometriosis or other issues. She has had an IUD in place for 17 months. She continues to have nausea but has not required any pain medication since last night. PAST MEDICAL HISTORY The patient's medical history is negative for heart, lung, liver disease, hypertension, diabetes, stroke. Does have a distant history of irritable bowel syndrome. PAST SURGICAL HISTORY None. GYNECOLOGIC HISTORY No STDs or abnormal Pap smears. She lives in [place] and has her gynecology care in [place]. OBSTETRICAL HISTORY Two vaginal deliveries. SOCIAL HISTORY Does not smoke, use alcohol or drugs. Has good social support. FAMILY HISTORY Noncontributory. REVIEW OF SYSTEMS No fever or chills. Does have right lower quadrant pain that began in the right lower quadrant, did not move, it has been present for 4-5 days and was associated with the nausea and vomiting. She is having no vaginal discharge. She does have issues with loose stools over the last several days as well. Her children have "colds" and have not been to day care for the last few days. No chest pain, orthopnea, PND. PHYSICAL EXAMINATION VITAL SIGNS: On exam she is afebrile, vital signs stable. Blood pressure 110/70. GENERAL: The patient is alert and oriented, in no acute distress. No sign of cognitive dysfunction, depression. Exam is limited since she has had multiple exams but her right lower quadrant is minimally tender. No rebound or guarding. PELVIC: Exam is not repeated. LABORATORY STUDIES Normal white count, normal hematocrit. Urinalysis is negative. IMAGING STUDIES Imaging studies show normal blood flow to the ovaries bilaterally. Normal uterus with an IUD in place. Possible hydrosalpinx 1 x 5 cm, does not appear to be edematous. Appendix appears to be normal on CT scan. ASSESSMENT Patient with nausea, GI symptoms, diarrhea with what I believe is a serendipitous identification of a hydrosalpinx. In my experience hydrosalpinx does not cause GI symptoms. I do not believe that we can reasonably anticipate removing a slightly enlarged tube, would remedy her symptomatology. At this point I think it is reasonable to obtain general surgery consult. It is more likely to have a normal appendix on CT scan, giving her these problems rather than a hydrosalpinx. It is also possible she has a viral syndrome with gastroenteritis with pain localized to the right side. At this point I do not believe her IUD needs to be removed. I do not see that she has an acute abdomen. I would not discharge her at this point though until she is seen by general surgery, since she still has some nausea issues. Discussed issues with the patient and her brother, they agree with the general surgery consult and holding discharge until seen by general surgery. MD AMELIA Haddad/NIKKY /12:57 PM /1:19 PM
--- NOTE | 2016-12-12 14:40 | PD.CONS ---
cc: Ana Tyson MD [facility] Service General Surgery Consult Requested By Dr. Lynsey BECERRIL Reason for Consult Rule out appendicitis Primary Care Physician Unknown History of Present Illness This is a 31-year-old female who developed abdominal pain starting Monday morning. She has had continuous nausea associated with abdominal pain. Monday night she ate spaghetti with her family and no one else who ate the same meal developed similar symptoms. She was seen at [facility] for the abdominal pain. A CT abdomen and pelvis was done but did not show any acute findings. The patient was instructed to come back to [facility] if her symptoms persisted. She did go back [facility] over the weekend but instructed her to see a dispatcher ship pilot. Her brother, Dr. Wakefield, is a equal opportunity officer here [facility] and he brought his sister here for evaluation. The patient' s been evaluated by [facility] with no acute findings except for hydrosalpinx. A CT abdomen and pelvis was completed at [facility] which did not reveal any acute findings. The patient's white blood cell count is normal. A General Surgery consultation has been requested for evaluation of possible appendicitis. Review of Systems Constitutional: DENIES: Weight gain, Weight loss Endocrine: DENIES: Polydipsia, Polyuria, Polyphagia Eyes: DENIES: Eye inflammation, Eye pain Ears, nose, mouth, throat: DENIES: Hearing loss, Vertigo, Nasal discharge Respiratory: DENIES: Apneas, Cough, Snoring Cardiovascular: DENIES: Chest pain Gastrointestinal: COMPLAINS OF: Abdominal pain, Diarrhea, Nausea Genitourinary: DENIES: Urinary frequency, Urinary incontinence Musculoskeletal: DENIES: Joint pain Integumentary: DENIES: Abnormal pigmentation Hematologic/lymphatic: DENIES: Bruising Immunologic/allergic: DENIES: Eczema Neurologic: DENIES: Abnormal gait, Headache Psychiatric: DENIES: Confusion, Mood changes, Depression Past Family Social History Past Medical History IBS (dx in high school) Past Surgical History [place] teeth extraction Reported Medications No routine medications at home Allergies: Coded Allergies: No Known Allergies (Unverified , 12/11/16) Active Ordered Medications Current Medications Medications (Trade) Dose Ordered Sig/Ave Route Start Time Stop Time Status Last Admin (NS Flush) 2 ml UNSCH PRN IV FLUSH 12/11/16 23:30 (NS Flush) 2 ml BID IV FLUSH 12/12/16 09:00 (Tylenol) 650 mg Q4H PRN PO 12/11/16 23:30 (Narcan Inj) 0.4 mg UNSCH PRN IV 12/11/16 23:30 (Dilaudid Pf Inj) 0.5 mg Q4H PRN IV PUSH 12/11/16 23:30 (Compazine Inj) 5 mg Q6H PRN IM 12/11/16 23:30 12/12/16 08:13 Docusate Sodium 100 mg 100 mg BID PO 12/12/16 21:00 (D5W-NS 1000 ml Inj) 1,000 ml @ 100 mls/hr Q10H IV 12/12/16 11:00 12/13/16 06:59 12/12/16 13:10 Family History Noncontributory Social History Denies tobacco use Occasional alcohol use Denies illicit drug use Physical Exam Vital Signs Vital Signs Date Time Temp Pulse Resp B/P Pulse Ox O2 Delivery O2 Flow Rate FiO2 12/12/16 12:00 97.9 96 18 100/59 97 12/12/16 08:00 98.6 73 18 99/54 97 12/12/16 07:59 98 21 12/12/16 04:00 97.0 69 18 103/54 98 12/12/16 00:55 97.0 96 17 97/55 96 12/12/16 00:29 69 18 100/56 97 12/12/16 00:09 96 12/11/16 21:14 63 18 95/54 96 Room Air 12/11/16 19:27 16 12/11/16 18:00 82 16 102/65 99 Room Air 12/11/16 16:11 97.9 74 16 97/69 98 Room Air 12/11/16 15:33 98.9 73 20 98 Physical Exam GENERAL: 31 year old female resting in bed in no acute distress SKIN: Warm and dry. HEAD: Atraumatic. Normocephalic. EYES: Pupils equal and round. No scleral icterus. No injection or drainage. ENT: No nasal bleeding or discharge. Mucous membranes pink and moist. NECK: Trachea midline. CARDIOVASCULAR: Regular rate and rhythm. RESPIRATORY: No accessory muscle use. Clear to auscultation. Breath sounds equal bilaterally. GASTROINTESTINAL: Abdomen soft, nondistended; pain localized to RLQ with associated nausea with palpation. No visible scars. MUSCULOSKELETAL: Extremities without clubbing, cyanosis, or edema. No obvious deformities. NEUROLOGICAL: Awake and alert. No obvious cranial nerve deficits. Motor grossly within normal limits. Five out of 5 muscle strength in the arms and legs. Normal speech. PSYCHIATRIC: Appropriate mood and affect; insight and judgment normal. Laboratory Laboratory Tests Test 12/11/16 12/11/16 12/12/16 16:00 18:35 06:01 White Blood Count 7.7 6.0 Red Blood Count 4.90 4.37 Hemoglobin 14.7 12.6 Hematocrit 41.6 37.9 Mean Corpuscular Volume 84.9 86.6 Mean Corpuscular Hemoglobin 30.1 28.7 Mean Corpuscular Hemoglobin 35.4 33.1 Concent Red Cell Distribution Width 13.1 12.8 Platelet Count 286 229 Mean Platelet Volume 7.9 7.9 Neutrophils (%) (Auto) 61.0 59.7 Lymphocytes (%) (Auto) 30.3 30.8 Monocytes (%) (Auto) 5.3 5.6 Eosinophils (%) (Auto) 2.4 3.0 Basophils (%) (Auto) 1.0 0.9 Neutrophils # (Auto) 4.7 3.6 Lymphocytes # (Auto) 2.3 1.8 Monocytes # (Auto) 0.4 0.3 Eosinophils # (Auto) 0.2 0.2 Basophils # (Auto) 0.1 0.1 CBC Comment DIFF FINAL DIFF FINAL Differential Comment Urine Color YELLOW Urine Turbidity CLEAR Urine pH 5.5 Urine Specific [place] 1.014 Urine Protein NEG Urine Glucose (UA) NEG Urine Ketones NEG Urine Occult Blood MOD Urine Nitrite NEG Urine Bilirubin NEG Urine Urobilinogen LESS THAN 2.0 Urine Leukocyte Esterase TRACE Urine RBC 1 Urine WBC 5 Urine Squamous Epithelial <1 Cells Urine Mucus FEW Microscopic Urinalysis Comment CULT NOT INDICATED Sodium Level 141 141 Potassium Level 3.8 3.8 Chloride Level 105 107 Carbon Dioxide Level 26.4 27.3 Anion Gap 10 7 Blood Urea Nitrogen 12 10 Creatinine 0.88 0.80 Estimat Glomerular Filtration 75 84 Rate Random Glucose 77 74 Calcium Level 8.9 8.1 Total Bilirubin 0.6 Aspartate Amino Transf 10 (AST/SGOT) Alanine Aminotransferase 14 (ALT/SGPT) Alkaline Phosphatase 85 Total Protein 7.5 Albumin 4.1 Lipase 130 Human Chorionic Gonadotropin, LESS THAN 1 Quant Clue Cells (Wet Prep) NONE SEEN Vaginal Trichomonas (Wet Prep) NONE SEEN Vaginal Yeast (Wet Prep) NONE SEEN Chlamydia trachomatis DNA NOT DETECTED (PCR) Neisseria gonorrhoeae DNA NOT DETECTED (PCR) Result Diagram: 12/12/16 0601 12/12/16 06 Imaging Last 48 hours Impressions Abdomen/Pelvis/Transvag US 12/11/162033 Signed Impressions: Service Date/Time: Sunday, December 11, 2016 21:19 - CONCLUSION: 1. Abnormality in the right adnexal region, probably an enlarged and edematous fallopian tube. Intrauterine device present. Positive ovarian blood flow noted bilaterally with small left sided ovarian follicular cysts. Lei Morales MD Abdomen/Pelvis CT 12/11/16 1550 Signed Impressions: Service Date/Time: Sunday, December 11, 2016 17:31 - CONCLUSION: 1. Possible right-sided hydrosalpinx. Recommend correlation with pelvic ultrasound. Appendix unremarkable. Intrauterine device present. Lei Morales MD Assessment and Plan Assessment and Plan 31 year old female with abdominal pain x 6 days with associated nausea and diarrhea; GS consultation possible appendicitis -Start PO diet; advance as tolerated -NPO after MN -IVF -OOB and mobilize -If able to tolerate PO diet will plan non operative management; if fails PO challenge will plan to do diagnostic laparostomy and laparoscopic appendectomy tomorrow -Patient and brother agree with plan -Thank you for allowing [facility] to participate in Mrs. Merrill's care here at [facility] -General Surgery will follow during the hospitalization I CERTIFY AND ATTEST THAT I PERSONALLY EXAMINED THE PATIENT IN HER ROOM. MS MEJIAS DOCUMENTED OUR VISIT AND ENTERED ORDERS IN THE EMR UNDER MY DIRECT SUPERVISION. I REVIEWED THE CARE PLAN WITH THE PATIENT AND HER BROTHER/DR WAKEFIELD. ANA TYSON MD FACS Discussed Condition With Dr. Tyson Mrs. Merrill Dr. Hahn (patient brother and Critical Care physician at [facility]) Rosa Mejias Dec 12, 2016 14:40 Ana Tyson MD Dec 21, 2016 08:52
[2016-12-12] MEDS: DOCUSATE SODIUM 100 MG CAP PO SCH (19:50)
[2016-12-13] VITALS: BP 111/55; PULSE 74; RESP 16; TEMP 97.2; O2SAT 98
[2016-12-13 05:15] VITALS: BP 102/59; PULSE 69; RESP 16; TEMP 97.4; O2SAT 98
[2016-12-13 05:40] LABS: AUTOMATED NEUTROPHIL # 3.9 TH/MM3 (1.8-7.7); BASOPHIL # 0.1 TH/MM3 (0-0.2); BASOPHIL % 0.9 % (0.0-2.0); EOSINOPHIL # 0.2 TH/MM3 (0-0.4); HEMATOCRIT 36.5 % (35.0-46.0); HEMO FLAGS DIFF FINAL; LYMPH % 33.5 % (9.0-44.0); LYMPHOCYTE # 2.4 TH/MM3 (1.0-4.8); MEAN CELL VOLUME 84.5 FL (80.0-100.0); MEAN CORPUSCULAR HEMOGLOBIN 29.7 PG (27.0-34.0); MEAN CORPUSCULAR HGB CONC 35.1 % (32.0-36.0); MONO % 7.2 % (0.0-8.0); NEUT % 55.4 % (16.0-70.0); PLATELET COUNT 247 TH/MM3 (150-450); RED BLOOD COUNT 4.32 MIL/MM3 (4.00-5.30); RED CELL DISTRIBUTION WIDTH 12.7 % (11.6-17.2); WHITE BLOOD COUNT 7.1 TH/MM3 (4.0-11.0)
[2016-12-13 08:00] VITALS: BP 101/58; PULSE 74; RESP 18; TEMP 98; O2SAT 97
[2016-12-13] MEDS ORDERED: ONDANSETRON HCL 4 MG/2 ML VIAL IV PUSH PRN (08:45)
[2016-12-13] MEDS ORDERED: DEXT 5%-NACL 0.9% 1000 ML INJ 1,000 ML IV SCH (08:45)
[2016-12-13] MEDS ORDERED: ZOFR4TAB PO (09:00)
[2016-12-13] MEDS: SODIUM CHLORIDE 0.9% FLUSH 10 ML FLUSH IV FLUSH SCH (09:00)
[2016-12-13] MEDS: DOCUSATE SODIUM 100 MG CAP PO SCH (09:00)
[2016-12-13] MEDS ORDERED: PANTOPRAZOLE SOD 40 MG DELAYED RELEASE TAB PO SCH (09:00)
[2016-12-13] MEDS ORDERED: PANT40TA3 PO (09:10)
--- NOTE | 2016-12-13 09:11 | HHI.DCPOC ---
Discharge Care Plan Diagnosis: (1) Hydrosalpinx (2) Right lower quadrant abdominal tenderness with rebound tenderness (3) Nausea Goals to Promote Your Health * To prevent worsening of your condition and complications * To maintain your health at the optimal level Directions to Meet Your Goals Take your medications as prescribed Follow your dietary instruction Follow activity as directed Keep your appointments as scheduled Take your immunizations and boosters as scheduled If your symptoms worsen call your PCP, if no PCP go to Urgent Care Center or Emergency Room Smoking is Dangerous to Your Health. Avoid second hand smoke Call the 24-hour hour crisis hotline for domestic abuse at Kendall Menon DO Dec 13, 2016 09:11
--- NOTE | 2016-12-13 09:54 | HHI.PR ---
Subjective Remarks The patient was resting comfortably in bed. She said she was still nauseous and required nausea medication last night. She said her abdominal pain is improved. She said that she did have an episode of diarrhea today. She was willing to try a diet. No other acute complaints. I discussed with nursing. Objective Vitals Vital Signs Date Time Temp Pulse Resp B/P Pulse Ox O2 Delivery O2 Flow Rate FiO2 12/13/16 08:00 98.0 74 18 101/58 97 12/13/16 05:15 97.4 69 16 102/59 98 12/13/16 00:00 97.2 74 16 111/55 98 12/12/16 20:00 98.3 82 16 107/64 97 12/12/16 16:00 98.5 94 18 106/59 97 12/12/16 12:00 97.9 96 18 100/59 97 I/O 12/12/16 12/12/16 12/12/16 12/13/16 12/13/16 12/13/16 07:00 15:00 23:00 07:00 15:00 23:00 Intake Total 0 ml 0 ml 480 ml Output Total 250 ml Balance 0 ml 0 ml 230 ml Intake Oral 0 ml 0 ml 480 ml Output Urine Total 250 ml # Voids 2 2 # Bowel Movements 1 Result Diagram: 12/13/16 0351 12/12/16 0601 Imaging Last Impressions Abdomen/Pelvis/Transvag US 12/11/162033 Signed Impressions: Service Date/Time: Sunday, December 11, 2016 21:19 - CONCLUSION: 1. Abnormality in the right adnexal region, probably an enlarged and edematous fallopian tube. Intrauterine device present. Positive ovarian blood flow noted bilaterally with small left sided ovarian follicular cysts. Lei Morales MD Abdomen/Pelvis CT 12/11/16 1550 Signed Impressions: Service Date/Time: Sunday, December 11, 2016 17:31 - CONCLUSION: 1. Possible right-sided hydrosalpinx. Recommend correlation with pelvic ultrasound. Appendix unremarkable. Intrauterine device present. Lei Morales MD Objective Remarks GENERAL: This is a well-nourished, well-developed patient, in no apparent distress. SKIN: No rashes, ecchymoses or lesions. Cool and dry. HEAD: Atraumatic. Normocephalic. No temporal or scalp tenderness. EYES: Extraocular motions intact. No scleral icterus. No injection or drainage. CARDIOVASCULAR: Regular rate and rhythm without murmurs, gallops, or rubs. RESPIRATORY: Clear to auscultation. Breath sounds equal bilaterally. No wheezes , rales, or rhonchi. GASTROINTESTINAL: Abdomen soft, non-tender, nondistended. MUSCULOSKELETAL: Extremities without clubbing, cyanosis, or edema. No joint tenderness, effusion, or edema noted. NEUROLOGICAL: Awake and alert. Cranial nerves II through XII intact. Motor and sensory grossly within normal limits. Five out of 5 muscle strength in all muscle groups. Normal speech. PSYCH: Mood and affect appropriate. Medications and IVs Current Medications Medications (Trade) Dose Ordered Sig/Ave Route Start Time Stop Time Status Last Admin (NS Flush) 2 ml UNSCH PRN IV FLUSH 12/11/16 23:30 (NS Flush) 2 ml BID IV FLUSH 12/12/16 09:00 12/13/16 09:00 (Tylenol) 650 mg Q4H PRN PO 12/11/16 23:30 (Narcan Inj) 0.4 mg UNSCH PRN IV 12/11/16 23:30 (Dilaudid Pf Inj) 0.5 mg Q4H PRN IV PUSH 12/11/16 23:30 (Compazine Inj) 5 mg Q6H PRN IM 12/11/16 23:30 12/12/16 21:16 Docusate Sodium 100 mg 100 mg BID PO 12/12/16 21:00 (D5W-NS 1000 ml Inj) 1,000 ml @ 100 mls/hr Q10H IV 12/13/16 08:45 12/13/16 18:44 12/13/16 09:15 (Zofran Inj) 4 mg Q8HR PRN IV PUSH 12/13/16 08:45 12/13/16 09:13 (Protonix) 40 mg DAILY PO 12/13/16 09:00 12/13/16 09:13 A/P Assessment and Plan RLQ abdominal pain/ Nausea/ Diarrhea Transvaginal pelvic ultrasound reveals: Abnormality in the right adnexal region , probably an enlarged and edematous fallopian tube; Intrauterine device present ; Positive ovarian blood flow noted bilaterally with small left sided ovarian follicular cysts. CT abdomen and pelvis reveals: Possible right-sided hydrosalpinx; Appendix unremarkable. Appreciate [facility] and general surgery consults. No evidence for acute intra-abdominal etiology. The patient does have some diarrhea associated with her nausea. May be secondary to viral gastroenteritis. ESR/ CRP not elevated. WBC normal. Afebrile. - Advance diet as tolerated. Continue IV fluids with D5 for now. - Antiemetics as needed. - Pain control with a bowel regimen. - Follow up with [facility] as an outpatient. - Follow up with general surgery as needed. Hypotension Likely the pt's baseline blood pressure. - monitor. - fluids. PPx: SCDs. Discharge Planning Anticipate discharge later today. Kendall Menon DO Dec 13, 2016 09:54
--- NOTE | 2016-12-13 10:42 | HHI.PR ---
Subjective Subjective Notes Resting in bed Was able to tolerate dinner last night with minimal nausea Christina at bedside visiting Objective Vitals/I&O Vital Signs Date Time Temp Pulse Resp B/P Pulse Ox O2 Delivery O2 Flow Rate FiO2 12/13/16 08:00 98.0 74 18 101/58 97 12/12/16 07:59 21 12/11/16 21:14 Room Air Labs Laboratory Tests Test 12/12/16 12/13/16 20:17 03:51 Erythrocyte Sedimentation Rate 5 C-Reactive Protein LESS THAN 0.29 White Blood Count 7.1 Red Blood Count 4.32 Hemoglobin 12.8 Hematocrit 36.5 Mean Corpuscular Volume 84.5 Mean Corpuscular Hemoglobin 29.7 Mean Corpuscular Hemoglobin 35.1 Concent Red Cell Distribution Width 12.7 Platelet Count 247 Mean Platelet Volume 8.1 Neutrophils (%) (Auto) 55.4 Lymphocytes (%) (Auto) 33.5 Monocytes (%) (Auto) 7.2 Eosinophils (%) (Auto) 3.0 Basophils (%) (Auto) 0.9 Neutrophils # (Auto) 3.9 Lymphocytes # (Auto) 2.4 Monocytes # (Auto) 0.5 Eosinophils # (Auto) 0.2 Basophils # (Auto) 0.1 CBC Comment DIFF FINAL Differential Comment Radiology Last 48 hours Impressions Abdomen/Pelvis/Transvag US 12/11/162033 Signed Impressions: Service Date/Time: Sunday, December 11, 2016 21:19 - CONCLUSION: 1. Abnormality in the right adnexal region, probably an enlarged and edematous fallopian tube. Intrauterine device present. Positive ovarian blood flow noted bilaterally with small left sided ovarian follicular cysts. Lei Morales MD Abdomen/Pelvis CT 12/11/16 1550 Signed Impressions: Service Date/Time: Sunday, December 11, 2016 17:31 - CONCLUSION: 1. Possible right-sided hydrosalpinx. Recommend correlation with pelvic ultrasound. Appendix unremarkable. Intrauterine device present. Lei Morales MD Cardiovascular: Regular Lungs: Clear Abdomen: Other (abd soft; no pain with palpation; nausea associated with palpation of abdomen ) Extremities: No edema A/P Assessment and Plan 31 year old female with abdominal pain with associated nausea and diarrhea; Rule out appendicitis -Tolerated dinner last night with minimal nausea -Abdominal exam benign -If tolerates breakfast this AM okay to DC from GS standpoint -No surgery planned -Follow up with Dr. Clarke only as needed for elective diagnostic laparotomy Rosa Mejias Dec 13, 2016 10:42
--- NOTE | 2016-12-13 10:50 | HHI.PR ---
Objective Vital Signs Vital Signs Date Time Temp Pulse Resp B/P Pulse Ox O2 Delivery O2 Flow Rate FiO2 12/13/16 08:00 98.0 74 18 101/58 97 12/13/16 05:15 97.4 69 16 102/59 98 12/13/16 00:00 97.2 74 16 111/55 98 12/12/16 20:00 98.3 82 16 107/64 97 12/12/16 16:00 98.5 94 18 106/59 97 12/12/16 12:00 97.9 96 18 100/59 97 Result Diagram: 12/13/16 0351 12/12/16 0601 Medications and IVs Current Medications Medications (Trade) Dose Ordered Sig/Ave Route Start Time Stop Time Status Last Admin (NS Flush) 2 ml UNSCH PRN IV FLUSH 12/11/16 23:30 (NS Flush) 2 ml BID IV FLUSH 12/12/16 09:00 12/13/16 09:00 (Tylenol) 650 mg Q4H PRN PO 12/11/16 23:30 (Narcan Inj) 0.4 mg UNSCH PRN IV 12/11/16 23:30 (Dilaudid Pf Inj) 0.5 mg Q4H PRN IV PUSH 12/11/16 23:30 (Compazine Inj) 5 mg Q6H PRN IM 12/11/16 23:30 12/12/16 21:16 Docusate Sodium 100 mg 100 mg BID PO 12/12/16 21:00 (D5W-NS 1000 ml Inj) 1,000 ml @ 100 mls/hr Q10H IV 12/13/16 08:45 12/13/16 18:44 12/13/16 09:15 (Zofran Inj) 4 mg Q8HR PRN IV PUSH 12/13/16 08:45 12/13/16 09:13 (Protonix) 40 mg DAILY PO 12/13/16 09:00 12/13/16 09:13 Assessment and Plan Assessment and Plan REVIEWED CHART AND AGREE WITH DC PLAN CAN F/U WITH HER [facility] IN [facility] RE HYDROSALPINX Ismael Daugherty MD Dec 13, 2016 10:50
[2016-12-13 12:00] VITALS: BP 98/56; PULSE 92; RESP 18; TEMP 97.1; O2SAT 99
== END 2016-12-13 13:36 | disposition home or self-care (01) ==
LOC: NEPD 15:25 → NEDA 22:32 → HOCA 12-12 00:41
PROVIDERS: ADMIT Hospitalist; ATTEND Hospitalist
DX: R10.31 Right lower quadrant pain (principal); N83.02 Follicular cyst of left ovary; R11.0 Nausea; I95.9 Hypotension, unspecified; R19.7 Diarrhea, unspecified
CPT/HCPCS: 74177; 76830; 76856; 80048; 80053; 81001; 83690; 84702; 84703; 85025; 85652; 86140; 87210; 87491; 87591; 93975; 96361; 96374; 96375; 99285; G0378; J0780; J1170; J2405; J7030; J7042; Q9963; Q9967